=== PATIENT | female | born 1930 | race Hispanic/Latino ===

== ENCOUNTER 2022-06-05 21:56 | Emergency (ER) | payer OTHER ==
[~2022-06-05] VITALS: Ht 162.6 cm; Wt 83.9 kg
[2022-06-05] MEDS ORDERED: ALBUTEROL/IPRATROPIUM 3 ML NEB NEB ONE (23:30)
[2022-06-05] MEDS ORDERED: ALBUTEROL/IPRATROPIUM 3 ML NEB ONE (23:41)
[2022-06-05] MEDS ORDERED: CEFTRIAXONE 1 GM VIAL ONE (23:42)
[2022-06-06] MEDS ORDERED: CEFDINIR300 MG PO (00:34)
[2022-06-06] MEDS ORDERED: BENZONATATE100 MG PO ×2 (00:34→00:50)
[2022-06-06] MEDS ORDERED: PROAIR HFA INH8.5 GM INH ×2 (00:34→00:50)
[2022-06-06] MEDS ORDERED: DOXYCYCLINE HY100 MG PO ×2 (00:34→00:50)
[2022-06-06] MEDS ORDERED: CEFUROXIME250 MG PO (00:50)
== END 2022-06-06 01:14 | disposition home or self-care (01) ==
LOC: FSED 22:00
DX: R05.9 Cough, unspecified (principal); R91.8 Other nonspecific abnormal finding of lung field; E11.65 Type 2 diabetes mellitus with hyperglycemia; I10 Essential (primary) hypertension; I25.10 Atherosclerotic heart disease of native coronary artery without angina pectoris; I25.2 Old myocardial infarction; Z95.0 Presence of cardiac pacemaker
CPT/HCPCS: 71046; 80053; 81003; 82553; 84484; 85025; 93005; 99284; J0696

== ENCOUNTER 2022-06-13 16:38 | Emergency (ER) | payer OTHER ==
[~2022-06-13] VITALS: Ht 162.6 cm; Wt 83.0 kg
[~2022-06-13 16:38] MED LIST: BENZONATATE100 MG PO; CEFDINIR300 MG PO; CEFUROXIME250 MG PO; DOXYCYCLINE HY100 MG PO; PROAIR HFA INH8.5 GM INH
[2022-06-13] MEDS ORDERED: ALBUTEROL/IPRATROPIUM 3 ML NEB NEB ONE (17:30)
[2022-06-13] MEDS ORDERED: BROMPHENIR-PSE118 ML PO (18:00)
[2022-06-13] MEDS ORDERED: PROAIR HFA INH8.5 GM INH (18:00)
== END 2022-06-13 18:10 | disposition home or self-care (01) ==
LOC: FSED 16:42
DX: R05.9 Cough, unspecified (principal); J20.9 Acute bronchitis, unspecified; I10 Essential (primary) hypertension; I25.10 Atherosclerotic heart disease of native coronary artery without angina pectoris; I25.2 Old myocardial infarction; Z95.0 Presence of cardiac pacemaker
CPT/HCPCS: 71045; 99283

== ENCOUNTER 2022-07-30 13:28 | Emergency (ER) | payer MEDICARE, MEDICAID ==
[~2022-07-30] VITALS: Ht 162.6 cm; Wt 83.0 kg
[~2022-07-30 13:28] MED LIST changes: +BROMPHENIR-PSE118 ML PO
[2022-07-30] MEDS ORDERED: ACETAMINOPHEN 325 MG TAB PO ONE (14:00)
[2022-07-30] MEDS ORDERED: ACETAMINOPHEN 325 MG TAB ONE (14:15)
== END 2022-07-30 18:16 | disposition home or self-care (01) ==
LOC: ER 13:45
DX: L98.9 Disorder of the skin and subcutaneous tissue, unspecified (principal); I10 Essential (primary) hypertension; I25.10 Atherosclerotic heart disease of native coronary artery without angina pectoris; I25.2 Old myocardial infarction; Z95.0 Presence of cardiac pacemaker
CPT/HCPCS: 99282

== ENCOUNTER 2022-09-28 12:09 | Emergency (ER) | payer MEDICARE, OTHER ==
[~2022-09-28] VITALS: Ht 162.6 cm; Wt 83.0 kg
[2022-09-28] MEDS ORDERED: ONDANSETRON ODT4 MG PO (12:39)
[2022-09-28] MEDS ORDERED: IBUPROFEN200 MG PO (12:39)
[2022-09-28] MEDS ORDERED: PROBIOTIC & AC1 EACH PO (12:39)
[2022-09-28] MEDS ORDERED: CEFDINIR300 MG PO (12:39)
[2022-09-28] MEDS ORDERED: CEFTRIAXONE 1 GM VIAL IM ONE (12:45)
[2022-09-28] MEDS ORDERED: ONDANSETRON HCL 4 MG ORAL DISINTEGRATING TAB PO ONE (12:45)
[2022-09-28] MEDS ORDERED: LIDOCAINE HCL 1% LOCAL INJ 20 ML VIAL ONE (12:52)
[2022-09-28] MEDS ORDERED: ONDANSETRON HCL 4 MG ORAL DISINTEGRATING TAB ONE (13:20)
[2022-09-28] MEDS ORDERED: CEFTRIAXONE 1 GM VIAL ONE (13:20)
[2022-09-28] MEDS ORDERED: LIDOCAINE HCL 2% LOCAL INJ 5 ML SDV VIAL INJ ONE (13:20)
== END 2022-09-28 13:09 | disposition home or self-care (01) ==
LOC: FSED 12:34
DX: R30.0 Dysuria (principal); N39.0 Urinary tract infection, site not specified; R11.0 Nausea; R00.0 Tachycardia, unspecified; I10 Essential (primary) hypertension; I25.10 Atherosclerotic heart disease of native coronary artery without angina pectoris; I25.2 Old myocardial infarction; Z95.0 Presence of cardiac pacemaker
CPT/HCPCS: 99282; J0696; J2001; Q0162